=== PATIENT | male | born 2000 | race Caucasian/White ===

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

== ENCOUNTER 2024-11-14 18:58 | Inpatient (IN) ==
--- NOTE | 2024-11-14 19:15 | Emergency Department Note ---
Impression & Plan Psychosis, Delusional disorder ED Provider Note NAME: KIRBY DUDLEY AGE: 24 SEX: M : 2000 ARRIVES VIA: Police [employer] INFORMANT: Patient, local police ED PROVIDER(S): Anuj Balbuena DO CHIEF COMPLAINT: Mental health evaluation HPI: The patient is a 24-year-old male who presented to the emergency department for an evaluation of mental health issues. The patient was brought in by police voluntarily. The patient was coming in [place] from [place]. He states that he was here to help his father who he thinks is getting divorce from his mother. Apparently his parents are vacationing in [facility]. A family member called the police for a wellness check and the patient was brought here. The patient denies having any suicidal homicidal ideation. He denies having any chest pain or difficulty breathing. He denies having any previous mental health history. ROS: See above HPI for pertinent positives & negatives. A total of 10 systems reviewed and were otherwise negative. PAST MEDICAL HISTORY: See Below PAST SURGICAL HISTORY: See Below FAMILY HISTORY: See Below SOCIAL HISTORY: See Below HOME MEDICATIONS: See Below ALLERGIES: See Below VITALS: See Below PHYSICAL EXAMINATION: GENERAL: The patient is awake and alert. He is somewhat anxious. EYES: The conjunctivae are clear. The pupils are round and reactive. EARS, NOSE, MOUTH AND THROAT: The nose is without any evidence of any deformity. NECK: The neck is nontender and supple. RESPIRATORY: Normal respiratory effort is noted there is no evidence of wheezing rhonchi or rales CARDIOVASCULAR: Regular rate and rhythm noted there no murmurs rubs or gallops normal S1 normal S2. GASTROINTESTINAL: The abdomen is soft. Abdomen is nontender. MUSCULOSKELETAL/EXTREMITIES: There is no evidence of gross deformity full range of motion is noted in the hips and shoulders. SKIN: There is no obvious evidence of any rash. There are no petechiae, pallor or cyanosis noted. NEUROLOGIC: Patient is awake alert and oriented x3 strength is symmetric patellar reflexes are 2+ bilaterally. Gait was steady. PSYCH: The patient makes good eye contact for most of the evaluation. The patient's affect is animated. He voices multiple paranoid ideations. He keeps talking about wanting to fight for a war for the [place]. He states that his father might be in trouble in [place]. MEDICAL DECISION MAKING: The patient is a 24-year-old male who presented to the emergency department for mental health evaluation. The patient does not have any specific mental health history. Further history was obtained from the police as well as the patient's family members via the mental health telephonic case manager. I discussed the patient's laboratory results with him. He was medically cleared in the emergency department. He was evaluated by the mental health shelter case manager. He was felt to be a good candidate for inpatient management but at this time I do feel the patient may be a better candidate for 302 evaluation given his poor insight into his overall condition. 302 paperwork was filled out by the mental-health shelter case manager. I did sign 302 petition. The patient was ultimately accepted for inpatient treatment on 3 S. Triage Nursing notes reviewed. Prior medical records reviewed Vital Signs: reviewed and remarkable for no significant abnormalities Differential diagnosis: Mood disorder, infection, hypoglycemia, electrolyte abnormalities, cardiac sources, intracerebral event, toxicologic, trauma, neurologic, as well as other pathologies. ER treatment provided: See below Diagnostics interpreted by me: ECG: none Laboratory studies: As stated above and show below. Imaging studies: See below. Consultation(s): I discussed this case with the emergency department with shelter case manager. Past Med/Surg History Problem List (Updated 11/14/24 @ 22:35 by Anuj Balbuena DO) Delusional disorder (Acute) Psychosis (Acute) Chest pain (Acute) GERD (gastroesophageal reflux disease) (Acute) GERD (gastroesophageal reflux disease) (Acute) Injury of right ankle (Acute) Social History Smoking Status: Current every day smoker Tobacco Type: E-cigarettes / Vaping Preferred Language: French Feels Safe at Home: No Gender Identity: Male Allergies Allergies Allergy/AdvReac Type Severity Reaction Status Date / Time No Known Allergies Allergy Unverified 03/20/16 00:06 Home Meds Home Medications Medication Instructions Recorded Confirmed No Known Home Medications 11/14/24 11/14/24 Results & Data (ED) Vital Signs Vital Signs - 24 hr 11/14/24 19:11 11/14/24 22:01 Temperature 36.8 C Temperature Source Oral Pulse Rate 83 Pulse Rate [Finger] 82 Respiratory Rate 18 16 Respiratory Effort / Characteristics Non-Labored Spontaneous Non-Labored Spontaneous Respiratory Depth Normal Normal Respiratory Pattern Regular Blood Pressure 150/97 H Blood Pressure [Left Arm] 131/84 Blood Pressure Mean 114 Blood Pressure Mean [Left Arm] 99 Pulse Oximetry 100 97 Oxygen Delivery Method Room Air Room Air Sepsis Recent Fever Within 48 Hours No Sepsis New/Unexplained Change in Mental Status N/A Sepsis Action Taken by Nursing No Action Required Home Medications Current Medication List: was personally reviewed by me Laboratory Data Attestation: I reviewed the patient's lab results. 11/14/24 19:04 11/14/24 19:04 Lab Results 11/14/24 11/14/24 11/14/24 Range/Units 19:04 19:46 19:51 WBC 8.97 (4.8-10.8) K/ul RBC 5.35 (4.70-6.10) M/uL Hgb 16.8 (14.0-18.0) g/dl Hct 46.7 (42.0-52.0) % MCV 87.3 (80.0-100.0) fL MCH 31.4 (25.0-34.0) pg MCHC 36.0 (32.0-36.0) g/dL RDW Std Deviation 35.3 L (36.4-46.3) fL RDW Coeff of Carol 11.0 L (11.5-14.5) % Plt Count 320 (130-400) K/uL MPV 9.1 L (9.4-12.4) fL Immature Gran % (Auto) 0.1 % Neut % (Auto) 68.6 % Lymph % (Auto) 23.6 % [place] % (Auto) 6.8 % Eos % (Auto) 0.2 % Baso % (Auto) 0.7 % Neut # (Auto) 6.15 (1.40-6.50) K/uL Lymph # (Auto) 2.12 (1.20-3.40) K/uL [place] # (Auto) 0.61 H (0.11-0.59) K/uL Eos # (Auto) 0.02 (0.00-0.50) K/uL Baso # (Auto) 0.06 (0.00-0.20) K/uL Immature Gran # (Auto) 0.01 (0.01-0.20) K/uL Sodium 137 (136-145) mmol/L Potassium 3.4 L (3.5-5.1) mmol/L Chloride 100 (98-107) mmol/L Carbon Dioxide 28 (21-32) mmol/L Anion Gap 9 (3-11) BUN 20 (6-23) mg/dl Creatinine 1.00 (0.6-1.4) mg/dl Est Cr Clr Drug Dosing 95.9 ml/min eGFR 108.46 BUN/Creatinine Ratio 20.0 (10-20) Glucose 111 H (70-99(Fasting)) mg/dl Calcium 9.5 (8.6-10.3) mg/dl Total Bilirubin 0.7 (0.2-1.0) mg/dl AST 48 H (13-39) U/L ALT 28 (7-52) U/L Alkaline Phosphatase 82 (34-104) U/L Total Protein 7.5 (6.0-8.3) gm/dl Albumin 4.8 (3.4-5.0) gm/dl Globulin 2.7 (2.5-4.0) gm/dl Albumin/Globulin Ratio 1.8 (0.9-2) TSH 3.043 (0.300-4.500) uIu/ml Urine Color Yellow Urine Appearance Clear (Clear) Urine pH 7.5 (4.5-7.5) Ur Specific [place] 1.004 (1.000-1.030) Urine Protein Negative (Negative) Urine Glucose (UA) Negative (Negative) Urine Ketones Negative (Negative) Urine Blood Negative (Negative) Urine Nitrite Negative (Negative) Urine Bilirubin Negative (Negative) Urine Urobilinogen Negative (Negative) Ur Leukocyte Esterase Negative (Negative) Urine Comment Salicylates < 3.0 L (3.0-30) mg/dl Urine Opiates Screen Neg (Neg) Ur Methadone, Qual Neg (Neg) Urine Fentanyl Screen Neg (Neg) Acetaminophen < 3 L (10-30) ug/ml Urine Barbiturates Neg (Neg) Ur Phencyclidine (PCP) Neg (Neg) U Amphetamin/Meth Scrn Neg (Neg) MDMA (Ecstasy) Screen Neg (Neg) U Benzodiazepines Scrn Neg (Neg) Ur Cocaine Metabolite Neg (Neg) U Marijuana (THC) Screen Neg (Neg) Ethyl Alcohol mg/dL < 10.0 (<10.0) mg/dl SARS-CoV-2, RNA, NAAT NEGATIVE (NEGATIVE) Administered Medications Discontinued Medications Lorazepam (Lorazepam 0.5 Mg Tab) 0.5 mg PO NOW STA Stop: 11/14/24 19:12 Last Admin: 11/14/24 19:25 Dose: 0.5 mg Documented By: BILLY Discharge Plan Visit Data Chief Complaint: Mental Health Evaluation Stated Complaint: 201 ED Provider: Anuj Balbuena Discharge Problem: Psychosis, Delusional disorder Patient Disposition: Transfer Behavioral Health Fac Condition: Fair
[2024-11-14] MEDS: LORazepam 0.5 MG TAB PO STA (19:25)
[2024-11-14 19:31] LABS: Basophils # (auto) 0.06 K/uL (0.00-0.20); Basophils % (auto) 0.7 %; Eosinophils # (auto) 0.02 K/uL (0.00-0.50); Eosinophils % (auto) 0.2 %; Hematocrit (blood only) 46.7 % (42.0-52.0); Hemoglobin 16.8 g/dl (14.0-18.0); Immature Granulocytes # (auto) 0.01 K/uL (0.01-0.20); Immature Granulocytes % (auto) 0.1 %; Lymphocytes # (auto) 2.12 K/uL (1.20-3.40); Lymphocytes % (auto) 23.6 %; Mean Corpuscular Hemoglobin 31.4 pg (25.0-34.0); Mean Corpuscular Volume 87.3 fL (80.0-100.0); Mean Platelet Volume 9.1 fL (9.4-12.4); Monocytes # (auto) 0.61 K/uL (0.11-0.59); Monocytes % (auto) 6.8 %; Neutrophils # (auto) 6.15 K/uL (1.40-6.50); Neutrophils % (auto) 68.6 %; Platelet Count 320 K/uL (130-400); RDW Standard Deviation 35.3 fL (36.4-46.3); Red Blood Count 5.35 M/uL (4.70-6.10); White Blood Count 8.97 K/ul (4.8-10.8)
[2024-11-14 19:49] LABS: Albumin Globulin Ratio 1.8 (0.9-2); Albumin Level 4.8 gm/dl (3.4-5.0); Bilirubin,Total 0.7 mg/dl (0.2-1.0); Calcium 9.5 mg/dl (8.6-10.3); Creatinine Clr Calc Pharmacy 95.9 ml/min; Globulin 2.7 gm/dl (2.5-4.0); Potassium 3.4 mmol/L (3.5-5.1); Total Protein 7.5 gm/dl (6.0-8.3)
[2024-11-14 19:56] LABS: Acetaminophen < 3 ug/ml (10-30); Salicylate < 3.0 mg/dl (3.0-30)
[2024-11-14 20:05] LABS: Thyroid Stimulating Hormone 3.043 uIu/ml (0.300-4.500)
[2024-11-14 20:05] LABS: Appearance Urine Clear (Clear); Bilirubin Urine Negative (Negative); Blood Urine Negative (Negative); Color Urine Yellow; Glucose Urine UA Negative (Negative); Ketones Urine Negative (Negative); Leukocyte Esterase Urine Negative (Negative); Nitrite Urine Negative (Negative); Protein Urine Negative (Negative); Specific Gravity Urine 1.004 (1.000-1.030); Urobilinogen Urine Negative (Negative); pH Urine 7.5 (4.5-7.5)
[2024-11-14 20:41] LABS: Amphetamines+Metham, Urine Neg (Neg); Barbiturates, Urine Neg (Neg); Benzodiazepine, Urine Neg (Neg); Cocaine, Urine Neg (Neg); Fentanyl, Urine Neg (Neg); MDMA (Ecstacy), Urine Neg (Neg); Marijuana, Urine Neg (Neg); Methadone, Urine Neg (Neg); Opiate, Urine Neg (Neg); Phencyclidine, Urine Neg (Neg)
[2024-11-15] MEDS ORDERED: BISMUTH SUBSALICYLATE 262 MG CHEW PO PRN (00:23)
[2024-11-15] MEDS ORDERED: ACETAMINOPHEN 325 MG TAB PO PRN (00:23)
[2024-11-15] MEDS ORDERED: SODIUM CHLORIDE 0.65% NA SOLN 45 ML (OCEAN) PRN (00:23)
[2024-11-15] MEDS ORDERED: hydrOXYzine HCl 25 MG TAB PO PRN (00:23)
[2024-11-15] MEDS ORDERED: MAGNESIUM HYDROXIDE SUSP 30 ML UDC PO PRN (00:23)
[2024-11-15] MEDS ORDERED: ALUMINUM/MAGNESIUM SUSP 30 ML UDC PO PRN (00:23)
[2024-11-15] MEDS: NICOTINE 14 MG/24 HR PATCH TD SCH (09:40)
[2024-11-15] MEDS: NICOTINE POLACRILEX 2 MG GUM MT PRN (09:40)
[2024-11-15] MEDS: hydrOXYzine HCl 25 MG TAB PO PRN (11:38)
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
[2024-11-15] MEDS: risperiDONE 2 MG TABLET PO SCH (21:21)
[2024-11-16 07:24] LABS: Chol HDL Ratio 2.3 (0-5)
[2024-11-16 07:44] LABS: Estimated Average Glucose 108 mg/dl; Hemoglobin A1C 5.4 % (4.5-5.6)
[2024-11-16 07:49] LABS: Cortisol AM 15.05 mcg/dl (6.2-22.6)
[2024-11-16 08:05] LABS: Folate (Folic Acid),Ser orPlas 10.83 ng/ml (>5.38)
[2024-11-16] MEDS: ERGOCALCIFEROL 1250 MCG (50,000 UNITS) CAP PO SCH (12:44)
[2024-11-16] MEDS: CHOLECALCIFEROL 125 MCG (5,000 UNITS) TAB PO SCH (12:44)
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
[2024-11-16] MEDS: risperiDONE 1 MG TABLET PO SCH (21:37)
--- NOTE | 2024-11-17 14:09 | Psychiatric Progress Note ---
Date of Service November 17, 2024 Impression / Recommendations Impression KIRBY DUDLEY is a 24-year-old M who currently lives with roommate ([place]), no past psychiatric history, and was admitted on 11/14/24 22:33 on a 302 involuntary commitment for psychosis. Presentation concerning for active psychosis with new onset persecutory delusions, disorganized thought process. Differential includes Brief psychotic episode (persecutory delusions, age of onset, disorganized thought process) vs Bipolar disorder (less likely, no prominent mood symptoms) vs substance induced psychosis (less likely, UDS negative, no h/o substance problem). A: Patient presenting less thought disorganization, less paranoia, and less preoccupation. Tolerating risperidone well with no signs of EPS. Continues to be apprehensive at times and presenting some irrational thoughts. Gathered collateral from father who indicates no h/o negative symptoms and pt was well functioning until recently. Duration of psychosis < 1 mo with no past episodes. MNPR due to psychosis Overall, I spent a total of 60 minutes with this case including review of chart records, nursing report, review of lab work, direct evaluation of the patient at bedside, counseling the patient, multidisciplinary team meeting, orders, gathering collateral and documentation in the electronic health record. (1) Brief psychotic disorder: (2) Paranoia: (3) Persecutory delusion: (4) Disorganized thought process: (5) Anxiety: (6) Tobacco dependence: Plan 11/17/24: Continue medications and treatment plan 11/16/24: -Increase Risperidone to 3mg HS -Start Vitamin D3 125mcg daily and Vitamin D2 1250mcg weekly 11/15/24: The patient was admitted to the [facility] ([facility] mental health unit) on q15 min checks (behavioral with suicide precautions) for safety. The patient will participate in group, recreational, and milieu therapies and will be offered additional individual and family sessions as clinically appropriate. -Risperidone 2mg HS -Labs: A1C, fasting lipid, Vit D, Vit B12, Folate, ESR, Cortisol, RPR Inventory Assets Strengths: family support, fair self esteem Needs: medication management, improved insight Suicide Risk Level Suicide Risk Level: Moderate (q15 min suicide checks) Risk Factors Assessment Male: Yes : Yes Do You Have Access To A Gun?: No Health Problems: No Mental Health Diagnoses: Yes Substance Use Disorders: No Previous Attempt: No Family History of Suicide: No Previous Psychiatric Hospitalization: Yes Hopelessness: No Protective Factors Assessment Druze Beliefs: No : No Responsible for Young Children: No Employed: Yes Stable Relationships: Yes Supportive Family: Yes Good Rapport with Provider: Yes Absence of Any Risk Factors Above: No Interval History Chief Complaint Psychosis Review of Systems Sleep Information Total Hours of Sleep: 6.5 Meal Information Percent Meal Consumed - Breakfast: 100 Percent Meal Consumed - Lunch: 100 Percent Meal Consumed - Dinner: 100 Subjective Subjective Patient was seen & assessed and interval progress reviewed with treatment team nursing and social work Overnight slept 6.5 hours. On approach he is immediately asking to leave. I go over his discharge plan with him and how we had discussed Thursday and he is agreeable. He reports questioning how he is doing in his life and goes on a tangent. He ruminates about his mother being involved in request clarification if we talk to her. He is rambling to himself and says that he can take help. Reassured. He reports a discharge plan to take a break and write ideas for the future. Reports feeling safe and denies AVH. Denies feelings of persecution. Denies SI. Patient provided permission to contact father ([phone] Xavi): Non-specific psychosis on 11/13/24 at [facility]. Roommate noticed bizare behaviors last month. Recent poor sleep. No past episodes. Lot of responsibilities for school and work. 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 Took on too many responsibilities and extremely stressed to become independent. Graduated cum laude. Good social function with friends and family. No change in intelligence or motivation. Father with severe depression. Physical Exam Mental Examination Appearance: Well Groomed Eye Contact: Fleeting Contact Motor Behavior: Slowed Speech: Normal and Circumstantial Mood: Calm Affect: Apprehensive and Constricted Thought Process: Circumstantial Thought Content: Disoriented Hallucinations: None Insight: Poor (improving) Judgement: Poor Vital Signs (Past 24 Hours) Last Vital Signs Temp 36.4 C 11/17/24 06:39 Pulse 76 11/17/24 06:39 Resp 20 11/17/24 06:39 BP 124/77 11/17/24 06:39 Pulse Ox 97 11/17/24 06:39 O2 Del Method Room Air 11/17/24 06:39 Results & Data ([facility]) Current Inpatient Medications Current Inpatient Medications: Current Inpatient Medications Acetaminophen (Acetaminophen 325 Mg Tab) 650 mg PO Q4H PRN PRN Reason: Headache or Minor Fever Stop: 12/15/24 00:22 Al Hydrox/Mg Hydrox/Simethicone (Aluminum/Magnesium Susp 30 Ml Udc) 30 ml PO Q4H PRN PRN Reason: GI Upset Stop: 12/15/24 00:22 Bismuth Subsalicylate (Bismuth Subsalicylate 262 Mg Chew) 2 tab PO Q30M PRN PRN Reason: Loose Stool/Diarrhea Stop: 12/15/24 00:22 Ergocalciferol (Ergocalciferol 1250 Mcg (50,000 Units) Cap) 1,250 mcg PO Q7D [facility] Stop: 12/16/24 12:14 Last Admin: 11/16/24 12:44 Dose: 1,250 mcg Hydroxyzine HCl (Hydroxyzine Hcl 25 Mg Tab) 50 mg PO HSZ PRN PRN Reason: Insomnia Stop: 12/15/24 00:22 Hydroxyzine HCl (Hydroxyzine Hcl 25 Mg Tab) 25 mg PO Q4H PRN PRN Reason: Anxiety Stop: 12/15/24 00:22 Last Admin: 11/15/24 11:38 Dose: 25 mg Magnesium Hydroxide (Magnesium Hydroxide Susp 30 Ml Udc) 30 ml PO DAILY PRN PRN Reason: Constipation Stop: 12/15/24 00:22 Miscellaneous (Remove Nicoderm Patch) 1 each N/A DAILY@0859 [facility] Stop: 12/15/24 08:58 Last Admin: 11/17/24 09:07 Dose: 1 each Nicotine (Nicotine 14 Mg/24 Hr Patch) 1 patch TD QAM [facility] Stop: 12/15/24 08:59 Last Admin: 11/17/24 09:03 Dose: 1 patch Nicotine Polacrilex (Nicotine Polacrilex 2 Mg Gum) 1 piece MT Q2H PRN PRN Reason: cessation Stop: 12/15/24 09:12 Last Admin: 11/17/24 12:53 Dose: 1 piece Risperidone (Risperidone 1 Mg Tablet) 3 mg PO HS [facility] Stop: 12/16/24 21:59 Last Admin: 11/16/24 21:37 Dose: 3 mg Sodium Chloride (Sodium Chloride 0.65% Na Soln 45 Ml ([place])) 1 - 2 sprays NA PRN PRN PRN Reason: Nasal Dryness/Congestion Stop: 12/15/24 00:22 Vitamin D (Cholecalciferol 125 Mcg (5,000 Units) Tab) 125 mcg PO QAM [facility] Stop: 12/16/24 12:29 Last Admin: 11/17/24 09:02 Dose: 125 mcg Mental Health & Subst Abuse Tx Psychiatrist Name of Psychiatrist: Javy Alcantara Psychiatrist's Date Of Appointment With Psychiatric Provider: 12/01/24 Time of Appointment with Psychiatrist: 8:10 am Therapist Name of Therapist: N/A Hotel Breakfast Attendant Name of Hotel Breakfast Attendant: N/A Post Discharge Appointments Primary Care Physician Name Of Family Doctor/PCP: N/A
--- NOTE | 2024-11-18 12:49 | Psychiatric Progress Note ---
Date of Service November 18, 2024 Impression / Recommendations Impression KIRBY DUDLEY is a 24-year-old M who currently lives with roommate ([place]), no past psychiatric history, and was admitted on 11/14/24 22:33 on a 302 involuntary commitment for psychosis. Presentation concerning for active psychosis with new onset persecutory delusions, disorganized thought process. Differential includes Brief psychotic episode (persecutory delusions, age of onset, disorganized thought process) vs Bipolar disorder (less likely, no prominent mood symptoms) vs substance induced psychosis (less likely, UDS negative, no h/o substance problem). A: Patient presenting less thought disorganization, less paranoia, and less preoccupation. Tolerating risperidone well with no signs of EPS. Continues to be apprehensive at times and presenting some irrational thoughts. Distrustful of his close friend and mother and associating his paranoia to their actions. Voices future medication adherence. MNPR due to psychosis Overall, I spent a total of 40 minutes with this case including review of chart records, nursing report, review of lab work, direct evaluation of the patient at bedside, counseling the patient, multidisciplinary team meeting, orders, gathering collateral and documentation in the electronic health record. (1) Brief psychotic disorder: (2) Paranoia: (3) Persecutory delusion: (4) Disorganized thought process: (5) Anxiety: (6) Tobacco dependence: Plan 11/18/24: Continue medications and treatment plan 11/17/24: Continue medications and treatment plan 11/16/24: -Increase Risperidone to 3mg HS -Start Vitamin D3 125mcg daily and Vitamin D2 1250mcg weekly 11/15/24: The patient was admitted to the [facility] ([facility] unit) on q15 min checks (behavioral with suicide precautions) for safety. The patient will participate in group, recreational, and milieu therapies and will be offered additional individual and family sessions as clinically appropriate. -Risperidone 2mg HS -Labs: A1C, fasting lipid, Vit D, Vit B12, Folate, ESR, Cortisol, RPR Inventory Assets Strengths: family support, fair self esteem Needs: medication management, improved insight Suicide Risk Level Suicide Risk Level: Moderate (q15 min suicide checks) Risk Factors Assessment Male: Yes : Yes Do You Have Access To A Gun?: No Health Problems: No Mental Health Diagnoses: Yes Substance Use Disorders: No Previous Attempt: No Family History of Suicide: No Previous Psychiatric Hospitalization: Yes Hopelessness: No Protective Factors Assessment Quaker Beliefs: No : No Responsible for Young Children: No Employed: Yes Stable Relationships: Yes Supportive Family: Yes Good Rapport with Provider: Yes Absence of Any Risk Factors Above: No Interval History Chief Complaint Paranoia Review of Systems Sleep Information Total Hours of Sleep: 7.5 Meal Information Percent Meal Consumed - Breakfast: 100 Percent Meal Consumed - Lunch: 100 Percent Meal Consumed - Dinner: 100 Subjective Subjective Patient was seen & assessed and interval progress reviewed with treatment team nursing and social work Patient reports having disrupted sleep due to safety checks. Hopes friend Keven goes okay and says that he caused a lot of chaos. Noticed at the end of 2023 both him and keven were not being invited to his many parties. Keven mentioned something about donating plasma to go on a trip to [facility] and this sounded suspicious because of what a professor said. Worried he was doing drugs like heroin. Keven's landlord approached him and said that he needed help but he got defensive and thought Keven was the one who needed help. Does not want to speak to his mother right now and was considering getting a restraining order on her. 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 Reports feeling safe in the hospital. Feels less anxious and endorses a clear thought process. When asked about why he does not want to speak with his mom says that she is too controlling. He voices that he could get to a place where he has a relationship with her again but needs time. Physical Exam Mental Examination Appearance: Well Groomed Eye Contact: Fleeting Contact Motor Behavior: Slowed Speech: Normal and Circumstantial Mood: Calm Affect: Apprehensive and Constricted Thought Process: Circumstantial Thought Content: Disoriented Hallucinations: None Insight: Poor (improving) Judgement: Poor Vital Signs (Past 24 Hours) Last Vital Signs Temp 36.5 C 11/18/24 06:00 Pulse 90 11/18/24 06:31 Resp 16 11/18/24 06:00 BP 130/64 11/18/24 06:31 Pulse Ox 99 11/18/24 06:00 O2 Del Method Room Air 11/18/24 06:00 Results & Data ([facility]) Current Inpatient Medications Current Inpatient Medications: Current Inpatient Medications Acetaminophen (Acetaminophen 325 Mg Tab) 650 mg PO Q4H PRN PRN Reason: Headache or Minor Fever Stop: 12/15/24 00:22 Al Hydrox/Mg Hydrox/Simethicone (Aluminum/Magnesium Susp 30 Ml Udc) 30 ml PO Q4H PRN PRN Reason: GI Upset Stop: 12/15/24 00:22 Bismuth Subsalicylate (Bismuth Subsalicylate 262 Mg Chew) 2 tab PO Q30M PRN PRN Reason: Loose Stool/Diarrhea Stop: 12/15/24 00:22 Ergocalciferol (Ergocalciferol 1250 Mcg (50,000 Units) Cap) 1,250 mcg PO Q7D [facility] Stop: 12/16/24 12:14 Last Admin: 11/16/24 12:44 Dose: 1,250 mcg Hydroxyzine HCl (Hydroxyzine Hcl 25 Mg Tab) 50 mg PO HSZ PRN PRN Reason: Insomnia Stop: 12/15/24 00:22 Hydroxyzine HCl (Hydroxyzine Hcl 25 Mg Tab) 25 mg PO Q4H PRN PRN Reason: Anxiety Stop: 12/15/24 00:22 Last Admin: 11/15/24 11:38 Dose: 25 mg Magnesium Hydroxide (Magnesium Hydroxide Susp 30 Ml Udc) 30 ml PO DAILY PRN PRN Reason: Constipation Stop: 12/15/24 00:22 Miscellaneous (Remove Nicoderm Patch) 1 each N/A DAILY@0859 [facility] Stop: 12/15/24 08:58 Last Admin: 11/18/24 09:14 Dose: 1 each Nicotine (Nicotine 14 Mg/24 Hr Patch) [facility] Stop: 12/15/24 08:59 Last Admin: 11/18/24 09:15 Dose: Not Given Nicotine Polacrilex (Nicotine Polacrilex 2 Mg Gum) 1 piece MT Q2H PRN PRN Reason: cessation Stop: 12/15/24 09:12 Last Admin: 11/18/24 12:01 Dose: 1 piece Risperidone (Risperidone 1 Mg Tablet) 3 mg PO HS [facility] Stop: 12/16/24 21:59 Last Admin: 11/17/24 20:49 Dose: 3 mg Sodium Chloride (Sodium Chloride 0.65% Na Soln 45 Ml ([place])) 1 - 2 sprays NA PRN PRN PRN Reason: Nasal Dryness/Congestion Stop: 12/15/24 00:22 Vitamin D (Cholecalciferol 125 Mcg (5,000 Units) Tab) 125 mcg PO QAM [facility] Stop: 12/16/24 12:29 Last Admin: 11/18/24 09:15 Dose: 125 mcg Mental Health & Subst Abuse Tx Psychiatrist Name of Psychiatrist: Javy Alcantara Psychiatrist's Date Of Appointment With Psychiatric Provider: 12/01/24 Time of Appointment with Psychiatrist: 8:10 am Therapist Name of Therapist: N/A Postdoctoral Research Fellow Name of Postdoctoral Research Fellow: N/A Post Discharge Appointments Primary Care Physician Name Of Family Doctor/PCP: N/A
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
== END 2024-11-19 10:10 | disposition home or self-care (01) | DRG 885 ==
LOC: ED 18:58 → 3S 22:33